=== PATIENT | male | born 1980 | race Caucasian/White ===

== ENCOUNTER 2018-01-12 00:20 | Outpatient (CLI) | payer BC, SELFPAY ==
--- NOTE | 2018-01-12 11:00 | DI.MRI_ITS ---
SYMPTOMS/DIAGNOSIS: PAIN, ? ROTATOR CUFF TEAR MRI OF THE RIGHT SHOULDER: Routine noncontrast examination was performed. There is hyperintense signal seen in the supraspinatus tendon at its insertion onto the greater tuberosity consistent with a partial articular surface tear. The infraspinatus, teres minor and subscapularis tendons are intact. The muscles show normal signal and size. No significant muscular fatty atrophy is present. The biceps tendon has a normal appearance and location. There is hyperintense signal seen in the posterior superior labrum consistent with a tear. The remainder of the labrum is unremarkable. There are mild hypertrophic changes seen at the acromioclavicular joint and in the greater tuberosity. No evidence of an occult fracture or avascular necrosis is seen. The articular cartilage at the glenohumeral joint appears well maintained. No focal fluid collection or soft tissue mass is appreciated. IMPRESSION: 1. Findings most consistent with a small articular surface tear of the supraspinatus tendon. 2. Findings suggestive of a tear of the posterior superior labrum.
== END 2018-01-12 00:40 ==
PROVIDERS: Visit Provider Student in an Organized Health Care Education/Training Program
DX: M25.511 Pain in right shoulder (principal); M75.101 Unspecified rotator cuff tear or rupture of right shoulder, not specified as traumatic
CPT/HCPCS: 73221

== ENCOUNTER 2018-05-09 11:15 | Day surgery (SDC) | payer BC, SELFPAY ==
[2018-05-09] VITALS (7 sets, daily range): BP systolic 109–139; BP diastolic 57–71; PULSE 54–84; RESP 16–21; TEMP 36.2–36.7; O2SAT 97–99
[2018-05-09] MEDS: Lactated Ringers 1,000 ML 80 ML IV (12:10)
[2018-05-09] MEDS: Bupivacaine 0.5% Pres-Free 30 ML VIAL (13:02)
[2018-05-09] MEDS: Bupivacaine LIPOSOME/PF 133 MG/10 ML VIAL IJ (13:02)
--- NOTE | 2018-05-09 13:06 | W.PM.DSUDISC ---
Discharge Plan Disposition Patient Disposition: HOME Condition: Good Discharge Details Reason For Visit: Right Rotator Cuff Repair Attending Provider: Jhon Delarosa Primary Care Provider: Maritza Nazario Home Meds and New Rx's Prescriptions: New ibuprofen 600 mg tablet 600 mg PO TID PRNQty: 90 RF: 3 acetaminophen 500 mg capsule 1,000 mg PO Q8H PRN (Reason: pain) Qty: 90 RF: 0 oxycodone 5 mg tablet 5 mg PO Q4H Qty: 18 RF: 0 Continued fluconazole 150 MG tablet 150 mg PO weekly Qty: 8 RF: 0 Discharge Instructions Stand Alone Forms: Isaura Nielsen w/RCR Referrals: Jhon Delarosa MD [ [facility] STAFF PHYSICIAN] - Equipment/Supplies: Sling Activity:: Stay in Sling Remove Dressings/Wound Care:: 72 hours Shower/Bathe:: 72 hours Diet:: As Tolerated Discharge Orders Discharge Orders: Discharge Order (Routine); Ordered 05/09/18 Ordered By: Jhon Delarosa DS: Diagnosis Discharge Diagnosis (1) Partial tear of rotator cuff: Status: Acute
--- NOTE | 2018-05-09 13:09 | PDOC.DSDIS_ITS ---
Discharge Plan Disposition Patient Disposition: HOME Condition: Good Discharge Details Reason For Visit: Right Rotator Cuff Repair Attending Provider: Jhon Delarosa Primary Care Provider: Maritza Nazario Home Meds and New Rx's Prescriptions: New ibuprofen 600 mg tablet 600 mg PO TID PRNQty: 90 RF: 3 acetaminophen 500 mg capsule 1,000 mg PO Q8H PRN (Reason: pain) Qty: 90 RF: 0 oxycodone 5 mg tablet 5 mg PO Q4H Qty: 18 RF: 0 Continued fluconazole 150 MG tablet 150 mg PO weekly Qty: 8 RF: 0 Discharge Instructions Stand Alone Forms: Isaura Nielsen w/RCR Referrals: Jhon Delarosa MD [ [facility] STAFF PHYSICIAN] - Equipment/Supplies: Sling Activity:: Stay in Sling Remove Dressings/Wound Care:: 72 hours Shower/Bathe:: 72 hours Diet:: As Tolerated Discharge Orders Discharge Orders: Discharge Order (Routine); Ordered 05/09/18 Ordered By: Jhon Delarosa DS: Diagnosis Discharge Diagnosis (1) Partial tear of rotator cuff: Status: Acute
--- NOTE | 2018-05-10 11:46 | ROE_ITS ---
DATE OF SURGERY: May 09, 2018 PREOPERATIVE DIAGNOSIS: Right partial rotator cuff tear. POSTOPERATIVE DIAGNOSIS: Right nearly-complete supraspinatus tear, right glenohumeral chondromalacia, right SLAP tear. SURGEON: Jhon Delarosa M.D. COOK RELIEF: Keo Short FINDINGS: There was some mild biceps tendonitis. There was a type I SLAP tear from approximately 11:00 - 6:00. This was primarily a type I type tear where there was fraying noted on the peripheral edge but the deep tissues were attached. There was also notable chondromalacia seen on the anterior aspect of the glenoid which was associated with some fraying of the anterior labrum and anterior labrum was also intact. There was a large swath of grade III chondromalacia seen over the posterior aspect of the humeral head. The shoulder was taken through range of motion and did not dislocate nor subluxate. The articular side of the supraspinatus tendon showed a tear of approximately 6 millimeters in width. The depth of this tear was well over 8 millimeters and there was significant bony irregularity in this area. This area was marked with a suture and then examined on the bursal side which showed only a few millimeters of fibers left remaining and given the bony regularity seen on the articular side, I released these fibers and performed a complete rotator cuff repair using a medial and lateral row anchor. ANESTHESIA: General with interscalene nerve block. ESTIMATED BLOOD LOSS: Minimal. COMPLICATIONS: None. DISPOSITION: The patient was awakened from anesthesia and taken to PACU in stable condition. INDICATIONS FOR PROCEDURE: Lester is a 37-year-old who has had known shoulder pain. He reports multiple incidents of trauma to the right shoulder. 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 He has dealt with this with a host of conservative treatment options but continues to have pain and limitations. Given these failures, I did offer operative intervention. I reviewed the risks of the procedure to include bleeding, infection, pain, stiffness, weakness, damage to nerves and vessels, damage to muscles and tendons, recurrence, re-tear and blood clot. Despite these risks, he elected to proceed. PROCEDURE DESCRIPTION: Lester was greeted in the preoperative holding area. His identity was confirmed. The correct side was identified and marked. The consent was reviewed with the patient and signed. He was then taken back to the PACU where an interscalene nerve block was administered. After successful administration of the nerve block, he was given a general anesthesia in the operating room. He was then positioned into the beech chair position with any bony prominences well-padded. The head was placed in a neutral position with a foam head of data. Prophylactic antibiotics in the form of Cefazolin were given. The right arm was then prepped with ChloraPrep and draped in a standard fashion. A time-out was performed for safe surgery. The right arm was then placed into a pneumatic arm dubon, [id number]. The joint was insufflated with normal saline. A standard posterior portal was then made. The scope was inserted into the joint without significant difficulty. Immediately had visualization of the inside of the shoulder which showed some inflammatory changes. It also showed chondromalacia over the posterior humeral head which was unexpected. Using a spinal needle, an anterior portal was made within the rotator interval. A 6.5 millimeter cannula was placed in this space. A diagnostic arthroscopy was performed. There were significant inflammatory changes seen in the rotator interval and along the subscapularis and especially along the biceps tendon and the undersurface of the rotator cuff. Using a shaver and electrocautery, I debrided down some of this inflammatory change to fully investigate the area. There was no significant contraction of the rotator interval. The biceps did have very minimal and superficial inflammatory change and no tearing. There was a type I tear seen of the anterior labrum starting involving the entirety of the superior labrum from 10:00 - 2:00 o'clock. There was also a swath of grade III chondromalacia over the anterior aspect of the glenoid which corresponded to some type I fraying of the anterior labrum. The anterior labrum, Bankart area, was not detached. This was debrided down fully from the posterior aspect, superior aspect, down to the anterior aspect of the labrum. I debrided down this fraying, leaving a rim of labrum which was well-attached to the glenoid. There was also this swath of chondromalacia, grade III, which was seen on the posterior aspect of the humeral head, involving 1/3 of the humeral head. There was no engaging lesion and there was no Hill-Sachs deformity. After debridement of the rotator cuff and the biceps tendon and the labrum, I then turned my attention to the rotator cuff. There was a notable defect in the central portion of the supraspinatus insertion over the greater tuberosity. This was easily identifiable. It was debrided down to expose it fully. The width of the lesion was approximately 6 millimeters and the depth was well over 8 millimeters. There was significant bony irregularity in this area which made it very difficult from the articular side to appreciate the entire complexity of the tear. I did samuel this area with a PDS suture. The scope was removed from the shoulder. I then inserted the scope into the subacromial space and placed the cannula lateral to the coracoacromial ligament. A complete bursectomy was performed and the focus was made over the lateral bursa. We were able to identify the PDS suture showing the location of the articular side tear. This was probed and the probe immediately sank into these bursal-sided which, to me, did not demonstrate enough integrity to keep and therefore, using a knife, I cut these fibers off the greater tuberosity. There were maybe 2 millimeters of remaining bursal fibers before I encountered the articular sided tear. This was debrided down. The bony irregularity was also debrided with a shaver and a jean-paul to allow bleeding bone. The edges were debrided in order to get back to healthy tissue. Once this was identified fully, a spinal needle was used to identify a starting point for an anchor. A Mitek Healix anchor was then inserted. Unfortunately, this anchor broke during the insertion. The awl angles seemed to be appropriate and the awl was penetrated to the appropriate depth. However, his bone was extremely dense and broke the cannula. The pieces of the screw were removed. I then used a FASTIN metal anchor to place into the bone. This seemed to work much better. A single horizontal mattress suture was placed. A second horizontal mattress suture was attempted to be placed but, for some reason, frayed as it was going through the anchor and was unable to be kept. This horizontal mattress suture very nicely reapproximated the tendon down to bone. Due to the limited width and real estate in this area, and the density of his bone, I did not try to place another anchor. I did place a free suture running from anterior to posterior which incorporated the tendon to be used in the lateral row. This suture was then tied down firmly, again reapproximating the tendon down to bone and no longer being able to see the defect in the articular side. A lateral anchor was then established. This was using only using the two free limbs of the suture that I placed freely as well as the two limbs of the tied suture. Again, his bone was quite dense. It broke multiple Biocryl Rapide type suture anchors. I was able to have one which embedded deep enough to lock in the sutures and reapproximate the tendon down to bone. This reapproximated the tendon down to bone quite well. There was no exposed bone. There was no exposed articular surface. It was probed to make sure it was intact fully. Each anchor was tested significantly by pulling on the sutures prior to accepting its position. From a posterior portal, I brought a jean-paul into the shoulder. With the lateral viewing portal, using the cutting block technique, an acromioplasty was performed, raising up the anterolateral spur of the shoulder in plane with the posterior slip of the acromion. Any excess fluid from the shoulder was removed. The shoulder portal sites were closed with 3-0 Monocryl. These were followed by Steri-Strips, 4 x 4's, ABD and Medipore tape. At the end of the case, all counts were correct. He was placed in a sling and transferred to PACU in stable condition.
== END 2018-05-09 17:58 | disposition home or self-care (01) ==
PROVIDERS: Visit Provider Student in an Organized Health Care Education/Training Program
PROC: (CPT 29827; principal; 2018-05-09 12:45)
DX: M75.111 Incomplete rotator cuff tear or rupture of right shoulder, not specified as traumatic (principal); M94.211 Chondromalacia, right shoulder; S43.431A Superior glenoid labrum lesion of right shoulder, initial encounter; M75.21 Bicipital tendinitis, right shoulder; X58.XXXS Exposure to other specified factors, sequela
CPT/HCPCS: 29827; 29826; 29823; 64415; 76942; C1713; J0690; J1100; J2250; J2405; L3670

== ENCOUNTER 2019-06-11 09:55 | Outpatient (CLI) | payer BC, SELFPAY ==
--- NOTE | 2019-06-11 09:30 | DI.US_ITS ---
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 COMPARISON: No exams were available for comparison FINDINGS: The testicles are normal in size and echogenicity. There is no evidence of torsion or mass. An 8 m illimeter cyst is seen in the head of the right epididymis. No hydrocele or varicocele is seen. A n ormal appearing lymph node is noted in the right groin region. No hernia or fluid collection is seen . IMPRESSION: Small cyst in the head of the right epididymis. No abnormality seen involving the testicles. DATA REPOSITORY:
== END 2019-06-11 10:15 ==
DX: R10.31 Right lower quadrant pain (principal); N50.82 Scrotal pain; N50.3 Cyst of epididymis
CPT/HCPCS: 76870

== ENCOUNTER 2019-07-02 01:59 | Outpatient (CLI) | payer BC, SELFPAY ==
--- NOTE | 2019-07-02 07:45 | DI.US_ITS ---
EXAM: US SOFT TISS BUTTOCK/PERINEUM CLINICAL HISTORY: growing mass L buttock, soft tissue mass, M79.89 TECHNIQUE: Ultrasound performed using standard protocol. COMPARISON: US SCROTUM from 06/11/2019 FINDINGS: Soft tissue ultrasound was performed to evaluate a palpable abnormality of the inferior medial left b uttock region. There is a septated solid echogenicity mass which is fairly homogeneous and appears i soechoic with surrounding fat. Mild visible vascular flow intra lesionaly on Doppler evaluation. The findings as described are suggestive of a lipoma, please note that other etiologies including lip osarcoma or other neoplastic processes are not excluded on the basis of this examination. For a lesi on of this size, additional evaluation with MRI including post contrast imaging should be considered. DATA REPOSITORY:
== END 2019-07-02 02:19 ==
PROVIDERS: Visit Provider Surgery
DX: M79.89 Other specified soft tissue disorders (principal); D17.79 Benign lipomatous neoplasm of other sites
CPT/HCPCS: 76857

== ENCOUNTER 2019-08-03 03:08 | Outpatient (CLI) | payer BC, SELFPAY ==
--- NOTE | 2019-08-03 09:20 | DI.MRI_ITS ---
EXAM: MR PELVIS WO/W CLINICAL HISTORY: scan all of left buttock/upper left leg,mass soft tissue pelvis, r19.00 TECHNIQUE: Multiplanar multisequence MRI of Pelvis was performed. CONTRAST MATERIAL: IV Contrast: mL of Dotarem contrast administered. COMPARISON: US SOFT TISS BUTTOCK/PERINEUM from 07/02/2019 FINDINGS: Bones: There is no fracture or contusion pattern. No significant joint effusion or labral injury is present. No bone marrow edema is seen. The SI joints and symphysis pubis are well maintained. Musculotendinous structures: Musculotendinous structures demonstrate no abnormality. Intrapelvic structures demonstrate no significant abnormality. Soft tissues: In the subcutaneous fat of the left buttock inferiorly, there is a circumscribed, mildl y lobulated fatty signal lesion measuring 6.1 x 3.8 by 5 cm. No solid components or cystic component s are seen. There is no evidence of suspicious enhancement. The findings are consistent with a simpl e lipoma. No additional masses are identified. IMPRESSION: Findings are consistent with a 6.1 centimeter simple lipoma in the subcutaneous fat of the inferior l eft buttock. DATA REPOSITORY:
[2019-08-03] MEDS: Gadoterate meglumine 20 ML VIAL 15 ML IVP (09:31)
== END 2019-08-03 03:28 ==
PROVIDERS: Visit Provider Surgery
DX: R22.42 Localized swelling, mass and lump, left lower limb (principal); D17.39 Benign lipomatous neoplasm of skin and subcutaneous tissue of other sites
CPT/HCPCS: 72197

== ENCOUNTER 2020-04-19 10:48 | Emergency (ER) | payer BC, SELFPAY ==
[2020-04-19 10:52] VITALS: BP 135/77; PULSE 65; RESP 16; TEMP 36.7; O2SAT 98
[2020-04-19 11:06] LABS: Bilirubin Negative (Negative); Blood Trace-intact (Negative); Clarity Sl Cloudy (Clear); Glucose Negative (Negative); Ketones Negative (Negative); Leukocyte Esterase Negative (Negative); Nitrite Negative (Negative); Specific Gravity >= 1.030 (1.005-1.025); Urobilinogen 0.2 EU/dL (Up TO 0.2)
[2020-04-19 11:14] LABS: Bacteria Rare HPF (Negative); C & S Indicated? No; Casts Negative LPF (Negative); Crystals Negative HPF (Negative); Epithelial Cells Few HPF (Negative); Mucus Moderate (Negative); WBC 0-2 HPF (0-5)
--- NOTE | 2020-04-19 11:42 | ED.GENADUL_ITS ---
Discharge Plan Disposition Patient Disposition: HOME Condition: Stable Discharge Details Clinical Impression: Back pain, Hematuria Primary Care Provider: Maritza Nazario ED Provider: Craig Hancock Home Meds and New Rx's Prescriptions: Continued ibuprofen 600 mg tablet 600 mg PO TID PRNQty: 90 RF: 3 acetaminophen 500 mg capsule 1,000 mg PO Q8H PRN (Reason: pain) Qty: 90 RF: 0 Discharge Instructions Instructions: Hematuria (ED), Back Pain (ED) Additional Instructions: Your urinalysis reveals some microscopic blood in your urine, and this should be followed by your primary care provider as we discussed. CT imaging does not reveal any obvious signs of stone. This is likely musculoskeletal in nature. [id number] Tylenol and/or Motrin as directed for discomfort. Gentle stretching as tolerated. Cool and/or warm compresses every 2 hours for 20 minutes. Please watch for new or worsening symptoms and return to the ER for any concerns. I do recommend keeping your scheduled appointment in the next 2 weeks with your primary care provider for your annual physical. Medical Decision Making 39-year-old gentleman, denies any significant past history, reports moving a refrigerator couple of hours ago. Noticed a small amount of right-sided lower back pain but that worsened significantly over a half an hour or so. It caused him to become diaphoretic and lie down. Took Motrin and feels significantly better. He presents today wanting to be evaluated, is concerned about possible renal stone. Denies any flank discomfort, fever, abdominal pain, nausea, vomiting, radiation of pain into his groin or testicles, dysuria or hematuria. We discussed options. He does not want anything for pain control at the moment. He is open to obtaining a urinalysis to further evaluate for potential hematuria but does not want blood work. He appears well, nontoxic, no acute d istress. I believe this to be a reasonable plan. Pain is made worse with stretching or rotation of the torso. The urinalysis does reveal trace intact blood, 5-10 red blood cells. Otherwise unremarkable. Discussed findings with patient. He is agreeable to obtaining a CT of the abdomen and pelvis for renal colic, noncontrast but declines any blood work. Clinically this very well could be musculoskeletal but certainly cannot rule out the possibility of a renal stone. Likely CBC, CMP, will not change his outcome. If patient has a grossly abnormal CT then I will request once again to obtain laboratory values. CT imaging of the abdomen and pelvis, renal colic protocol read by radiology. No discrete evidence to suggest obstructive urinary stones. Bilateral faint medullary hyperdensities may suggest mild urinary nephrocalcinosis. Discussed CT findings with patient. He is relieved and has no additional questions or concerns. He will use [id number] Tylenol and/or Motrin as d irected for his discomfort. We discussed the hematuria findings and the importance of having this evaluated through his primary care provider. Coincidently, he is scheduled to be seen for a annual physical in the next couple of weeks and will follow up then. He was encouraged to return to the ER for new or worsening symptoms. Patient is comfortable discharge at this time. Medical Records Medical records reviewed: Yes I reviewed the patient's medical records. Lab Data Lab results reviewed: Yes I reviewed the patient's lab results. Labs: Laboratory Tests Range/Units 04/19/20 10:53 Urine Color (Yellow) Yellow Urine Clarity (Clear) Sl cloudy Urine pH (5-8) 6.0 Ur Specific [place] (1.005-1.025) >= 1.030 H Urine Protein (Negative) mg/dL Negative Urine Ketones (Negative) mg/dL Negative Urine Blood (Negative) Trace-intact H Urine Nitrite (Negative) Negative Urine Bilirubin (Negative) Negative Urine Urobilinogen (Up TO 0.2) EU/dL 0.2 Ur Leukocyte Esterase (Negative) Negative Urine RBC (0-2) HPF 5-10 H Urine WBC (0-5) HPF 0-2 Ur Epithelial Cells (Negative) HPF Few Urine Crystals (Negative) HPF Negative Urine Bacteria (Negative) HPF Rare Urine Casts (Negative) LPF Negative Urine Mucus (Negative) Moderate Ur Culture Indicated? No Urine Glucose (Negative) mg/dL Negative HPI General Mode of arrival: ambulatory . Date/Time Provider Initiated Documentation: 04/19/20 11:00 . Limitations to Documentation: no limitations . Information obtained by: patient . HPI Narrative: This is a 39-year-old gentleman, denies significant past medical history. He states that approximately 2 hours ago he was attempting to move a refrigerator. He noticed a small amount discomfort to his right back while he was moving a fridge but did not feel as though he sustained a true injury during the movement. Subsequently over the next 30 minutes the pain went from mild to much more moderate and severe, causing him to become diaphoretic and lie down. He took ecpr-nlo-djamoqt Advil and states that his pain is now much more tolerable. He denies any other trauma or recent illness. Denies fever, abdominal pain, nausea, vomiting, neck pain, dysuria, hematuria, pain in his testicles. He denies history of kidney stones but questions if that could be was happening today. Related Data Home Medications Medication Instructions Recorded Confirmed acetaminophen 1,000 mg PO Q8H PRN #90 cap 05/09/18 04/19/20 ibuprofen 600 mg PO TID PRN #90 tab 05/09/18 04/19/20 Previous Rx's Medication Instructions Recorded acetaminophen 1,000 mg PO Q8H PRN #90 cap 05/09/18 ibuprofen 600 mg PO TID PRN #90 tab 05/09/18 Allergies Allergy/AdvReac Type Severity Reaction Status Date / Time Sulfa (Sulfonamide Allergy Unknown as child Verified 04/19/20 10:59 Antibiotics) General Stated Complaint: Nk/Back Pain SISSY: 3 Review of Systems Constitutional Constitutional: Denies fatigue, Denies fever(s) and Denies weakness Cardiovascular Cardiovascular: Denies chest pain and Denies dyspnea Respiratory Respiratory: Denies cough and Denies dyspnea Gastrointestinal Gastrointestinal: Denies abdominal pain, Denies nausea and Denies vomiting Genitourinary Genitourinary: Denies hematuria and Denies dysuria Musculoskeletal Musculoskeletal: Reports back pain, Denies numbness and Denies tingling Integumentary/Breasts Skin/Breast: Denies rash Neurologic Neurologic: Denies numbness, Denies tingling and Denies weakness Endocrine Endocrine: Denies fatigue [facility] Medical History 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 Maternal Grandfather Throat cancer Paternal Grandfather No problems noted. Maternal Grandmother Diabetes Heart disease COPD (chronic obstructive pulmonary disease) Paternal Grandmother Stroke Cancer Son No problems noted. Daughter No problems noted. Daughter No problems noted. Son No problems noted. Social History Smoking/Tobacco Use Status: Never Second Hand Exposure: Yes Smoking risk assessment performed?: Yes Alcohol Intake: never Drug use: Rarely Substance use type: marijuana Caregiver/Support person: No Household members: spouse and children Housing: house Communication Needs: None Do you need help understanding health information?: Rarely Pets and animals: Yes Pets and animals: dog(s) Sexually active: Yes Do you think of yourself as: straight/heterosexual Current gender identity: male What is your relationship status?: How often do you talk on the phone with friends or family?: decline to answer How often do you get together with friends or relatives?: twice per week How often do you attend confucianist or baptist services?: decline to answer Do you belong to any clubs or organized social groups?: no Panel score (0-1 are the most socially isolated patients): 1 What type of physical activity do you participate in: other Details: cardio and small weights Duration: decline to answer Frequency: decline to answer Savita/Mu-Ism: No preference Special savita needs: No Seatbelt use: sometimes Helmet use: Yes Helmet use: always 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 Do you feel safe at home: Yes Do you feel safe in your relationship?: Yes Exam Const General: cooperative, healthy appearing, comfortable and no acute distress Orientation: alert and awake [facility] Head: normal to inspection, normocephalic and atraumatic Eyes General: appearance normal, both eyes and all related structures Conjunctivae: conjunctivae normal Sclera: sclerae normal Neck Neck: normal visual inspection, full ROM, trachea midline and supple Resp Effort & Inspection: normal respiratory effort and able to speak in complete sentences Auscultation: clear to auscultation bilaterally Cardio Rate: regular rate Rhythm: regular rhythm GI Inspection: normal to inspection Palpation: soft, not firm, no guarding, no pulsatile masses and nontender Auscultation: normal bowel sounds Back/Spine/Pelvis Back: no CVA tenderness and back tenderness (Diffuse right sided lower thoracic, and lumbar discomfort) Skin General skin exam: no rashes or lesions noted Neuro General: patient alert, patient awake, moves all extremities and no focal motor deficits Cognition: normal cognition Speech: speech normal Gait: normal gait Motor: muscle tone normal throughout Sensory Exam: no sensory deficits noted Extrem General: normal to inspection, full ROM, capillary refill normal, no pedal edema and no calf tenderness Psych Appearance: grossly normal Mental Status: mental status grossly normal Course Vital Signs Vital signs: Vital Signs Temperature 36.7 C 04/19/20 10:52 Pulse 65 04/19/20 10:52 Respiratory Rate 16 04/19/20 10:52 Blood Pressure 135/77 04/19/20 10:52 Pulse Oximetry 98 04/19/20 10:52 Temperature 36.7 C 04/19/20 10:52 Temperature Source Temporal Artery Scan 04/19/20 10:52 Pulse 65 04/19/20 10:52 Respiratory Rate 16 04/19/20 10:52 Respiratory Effort Non-Labored 04/19/20 10:57 Blood Pressure 135/77 04/19/20 10:52 Blood Pressure Position Sitting 04/19/20 10:52 Pulse Oximetry 98 04/19/20 10:52 Oxygen Delivery Method Room Air 04/19/20 10:52 Oxygen Flow Rate 0 04/19/20 10:52 Pain Level 5 04/19/20 11:01 Lab/Test Results Lab/Test Results: Laboratory Tests Range/Units 04/19/20 10:53 Urine Color (Yellow) Yellow Urine Clarity (Clear) Sl cloudy Urine pH (5-8) 6.0 Ur Specific [place] (1.005-1.025) >= 1.030 H Urine Protein (Negative) mg/dL Negative Urine Ketones (Negative) mg/dL Negative Urine Blood (Negative) Trace-intact H Urine Nitrite (Negative) Negative Urine Bilirubin (Negative) Negative Urine Urobilinogen (Up TO 0.2) EU/dL 0.2 Ur Leukocyte Esterase (Negative) Negative Urine RBC (0-2) HPF 5-10 H Urine WBC (0-5) HPF 0-2 Ur Epithelial Cells (Negative) HPF Few Urine Crystals (Negative) HPF Negative Urine Bacteria (Negative) HPF Rare Urine Casts (Negative) LPF Negative Urine Mucus (Negative) Moderate Ur Culture Indicated? No Urine Glucose (Negative) mg/dL Negative
--- NOTE | 2020-04-19 11:45 | DI.CT_ITS ---
EXAM: CT RENAL COLIC WO CLINICAL HISTORY: Right sided back pain, hematuria. TECHNIQUE: Imaging Protocol: Axial computed tomography images with coronal and sagittal reformatted images were created and reviewed. CONTRAST MATERIAL: Noncontrast COMPARISON: No exams were available for comparison FINDINGS: ABDOMEN: Lung Bases: Normal where visualized. Liver: Normal density. No measurable mass. Gallbladder and biliary tract: No radiodense calculus or dilation. Pancreas: Normal density, no abnormal calcifications or inflammatory process. Spleen: Normal. Kidneys: Normal size, contour and axis. Faint hyperdensity in the medullary regions kidneys could in dicate mild medullary nephrocalcinosis. No discrete stones or obstructive uropathy. No masses seen. Adrenal glands: No masses seen. Abdominal Aorta: Abdominal portion non-dilated. PELVIS: Bladder: Symmetric distention, no gross wall thickening. Bowel: Limited evaluation without IV or oral contrast. No obstruction or bowel wall thickening. Soft tissues: Partially visualized left buttock lipoma. Peritoneal cavity: No ascites, collection or mesenteric inflammatory response. Bones: Within normal limits. IMPRESSION: Mild medullary nephrocalcinosis. No evidence of discrete focal calcification or hydronephrosis.. RADIATION DOSE DELIVERED: 578.97mGy.cm Total DLP DATA REPOSITORY: All CT scans at this facility are submitted to the National Radiology Data Registry (NRDR) Dose Index Registry (DIR) with the [employer] (ACR). RADIATION OPTIMIZATION: All CT scans at this facility use at least one of these dose optimization te chniques: automated exposure control; mA and/or kV adjustment per patient size (includes targeted exa ms where dose is matched to clinical indication); or iterative reconstruction.
--- NOTE | 2020-04-19 12:04 | DI.VRAD_ITS ---
PROCEDURE INFORMATION: Exam: CT Abdomen And Pelvis Without Contrast Exam date and time: 04/19/2020 11:22 AM Age: 39 years old Clinical indication: Other: Right sided back pain, hematuria TECHNIQUE: Imaging protocol: Computed tomography of the abdomen and pelvis without contrast. Radiation optimization: All CT scans at this facility use at least one of these dose optimization techniques: automated exposure control; mA and/or kV adjustment per patient size (includes targeted exams where dose is matched to clinical indication); or iterative reconstruction. COMPARISON: MR PELVIS WO/W 08/03/2019 8:24 AM FINDINGS: Liver: Unremarkable. No mass. Gallbladder and bile ducts: Unremarkable. No calcified stones. No ductal dilation. Pancreas: Unremarkable. No ductal dilation. Spleen: Unremarkable. No splenomegaly. Adrenal glands: Normal. No mass. Kidneys and ureters: Bilateral faint medullary hyperdensities may indicate mild medullary nephrocalcinosis. There is no evidence of hydronephrosis. No discrete urinary stones. Stomach and bowel: Limited evaluation with the lack of enteric and intravenous contrast. No obstruction. No mucosal thickening. Appendix: No evidence of appendicitis. Intraperitoneal space: Unremarkable. No free air. No significant fluid collection. Vasculature: There are numerous benign phleboliths in the pelvis. No abdominal aortic aneurysm. Lymph nodes: Unremarkable. No enlarged lymph nodes. Urinary bladder: Unremarkable as visualized. Reproductive: Unremarkable as visualized. Bones/joints: Unremarkable. No acute fracture. Soft tissues: Partially visualized left buttock lipoma previously characterized with MRI dated 08/03/2019. IMPRESSION: 1. No discrete evidence to suggest obstructive urinary stones. 2. Bilateral faint medullary hyperdensities may suggest mild medullary nephrocalcinosis. 3. Evaluation of the hollow viscera is limited due to lack of enteric and intravenous contrast. 4. Partially visualized left buttock hematoma previously characterized MRI dated 08/03/2019. Dictated and Authenticated by: Kaleb Mosqueda MD. Ordering:BRICE Srinivasan MD
[2020-04-19 12:13] VITALS: BP 123/60; PULSE 60; RESP 16; TEMP 37; O2SAT 98
== END 2020-04-19 12:30 | disposition home or self-care (01) ==
PROVIDERS: Emergency Provider Physician Assistant
DX: M54.5 Low back pain (principal); R31.9 Hematuria, unspecified; X50.0XXA Overexertion from strenuous movement or load, initial encounter
CPT/HCPCS: 99284; 74176; 81003; 81015

== ENCOUNTER 2021-09-24 16:23 | Emergency (ER) | payer SELFPAY ==
[2021-09-24 16:46] VITALS: BP 124/69; PULSE 54; RESP 16; TEMP 36.8; O2SAT 100
--- NOTE | 2021-09-24 17:00 | DI.RAD_ITS ---
Exam(s) XR HIP RT COMPLETE AP PELVIS EXAM: XR HIP RT COMPLETE AP PELVIS CLINICAL HISTORY: R SI/Hip pain TECHNIQUE: COMPARISON: No exams were available for comparison FINDINGS: Two views were obtained. The cartilaginous joint spaces of the hips appear well maintained. No bony abnormality identified involving the hips or pelvis. The SI joints appear normal. IMPRESSION: Normal appearance of hips and SI joints. RADIATION DOSE DELIVERED: Total DLP
--- NOTE | 2021-09-24 17:11 | ED.GENADUL_ITS ---
Discharge Plan Disposition Patient Disposition: HOME Condition: Stable Discharge Details Clinical Impression: Sciatica of right side Primary Care Provider: Maritza Nazario ED Provider: Jah Bush Home Meds and New Rx's Prescriptions: New methocarbamol 500 mg tablet 500 - 1,000 mg PO Q6H PRN (Reason: Back pain or spasm) Qty: 14 0RF prednisone 50 mg tablet 50 mg PO DAILY 5 Days Qty: 5 0RF Continued ibuprofen 600 mg tablet 600 mg PO TID PRNQty: 90 3RF acetaminophen 500 mg capsule 1,000 mg PO Q8H PRN (Reason: pain) Qty: 90 0RF Discharge Instructions Instructions: Sciatica (ED) Additional Instructions: Remove Lidoderm patch in 12 hours. May use further qmef-huq-wrypewb patches if needed. Continue ibuprofen and Tylenol. May use the provided Robaxin 1000 mg at bedtime tonight. Prednisone prescription will start tomorrow. Follow-up with physical therapy if not improving in 2 days time. Return to the emergency department for any acute concerns Stand Alone Forms: Physical Therapy Referral Medical Decision Making Area 40-year-old male presents from home. He was on his knees changing a tire, when he swept his right leg out in abduction and and flexion of the hip. He felt immediate stabbing pain on the right hip radiating to the thigh. Since that time he had pain particularly with hip flexion. He has not had any change to motor function and no change to urinary habits. On exam he has normal motor and sensation throughout the right lower extremity. He is tender at the right sciatic notch. Differential diagnosis includes sciatica, SI joint dysfunction, iliopsoas irritation. Must exclude underlying bony cyst or malalignment. Patient referred for x-ray which is unremarkable. Please see the formal report. HPI General Mode of arrival: ambulatory . Date/Time Provider Initiated Documentation: 09/24/21 16:24 . Limitations to Documentation: no limitations . Information obtained by: patient . History of Present Illness 40 year old M presents to the emergency department with the chief complaint of Right hip pain since 09/23, described as moderate, Quality is described as dull, and is localized to the pelvis, right and lower extremity. Patient extremity. Patient started experiencing this hour(s) and it has been constant. Rest improves symptom(s), Movement worsens symptoms . Patient notes denies rash and weakness. Patient did receive the following treatments prior to arrival, NSAID Related Data Home Medications Medication Instructions Recorded Confirmed acetaminophen 500 mg capsule 1,000 mg PO Q8H PRN pain #90 caps 05/09/18 09/24/21 ibuprofen 600 mg tablet 600 mg PO TID PRN #90 tabs 05/09/18 09/24/21 methocarbamol 500 mg tablet 500 - 1,000 mg PO Q6H PRN Back 09/24/21 pain or spasm #14 tabs prednisone 50 mg tablet 50 mg PO DAILY 5 days #5 tabs 09/24/21 Previous Rx's Medication Instructions Recorded acetaminophen 500 mg capsule 1,000 mg PO Q8H PRN pain #90 caps 05/09/18 ibuprofen 600 mg tablet 600 mg PO TID PRN #90 tabs 05/09/18 methocarbamol 500 mg tablet 500 - 1,000 mg PO Q6H PRN Back 09/24/21 pain or spasm #14 tabs prednisone 50 mg tablet 50 mg PO DAILY 5 days #5 tabs 09/24/21 Allergies Allergy/AdvReac Type Severity Reaction Status Date / Time Sulfa (Sulfonamide Allergy Unknown as child Verified 09/24/21 16:51 Antibiotics) General Stated Complaint: Orthopedic SISSY: 4 Review of Systems Narrative: No rash, no weakness, no change to bowel or bladder habits. No saddle anesthesia. 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 Maternal Grandfather Throat cancer Paternal Grandfather No problems noted. Maternal Grandmother Diabetes Heart disease COPD (chronic obstructive pulmonary disease) Paternal Grandmother Stroke Cancer Son No problems noted. Daughter No problems noted. Daughter No problems noted. Son No problems noted. Social History Smoking/Tobacco Use Status: Never Second Hand Exposure: Yes Smoking risk assessment performed?: Yes Alcohol Intake: never Drug use: Rarely Substance use type: marijuana Counseling given: No Counseling provided: none Caregiver/Support person: No Household members: spouse and children Housing: house Communication Needs: None Do you need help understanding health information?: Rarely Pets and animals: Yes Pets and animals: dog(s) Sexually active: Yes Do you think of yourself as: straight/heterosexual Current gender identity: male What is your relationship status?: How often do you talk on the phone with friends or family?: three or more times per week How often do you get together with friends or relatives?: twice per week How often do you attend amish or mandaen services?: 1-3 times per year Do you belong to any clubs or organized social groups?: no Panel score (0-1 are the most socially isolated patients): 2 What type of physical activity do you participate in: other Details: cardio and small weights Duration: 30-45 minutes/day Frequency: 3-4 times per week Savita/Restorationism: Jainism Special savita needs: No Seatbelt use: sometimes Helmet use: Yes Helmet use: always 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 Pleasant, well groomed, interactive. HEAD: Normocephalic, atraumatic ENT: Mucous membranes moist, oropharynx unremarkable, External ear exam unremarkable EYES: PERRL, EOMI NECK: Full ROM, no RENY, no menigismus CHEST/RESP: No respiratory distress EXT: Full ROM, tender with palpation of right sciatic notch. Motor 5 out of 5. Sensation intact throughout. 1+ patellar reflex bilaterally Neuro: Grossly normal neurologic exam, conversant, interactive. Psych: Speech fluent, thoughts congruent, affect normal Course Vital Signs Vital signs: Vital Signs Temperature 36.8 C 09/24/21 16:46 Pulse 54 L 09/24/21 16:46 Respiratory Rate 16 09/24/21 16:46 Blood Pressure 124/69 09/24/21 16:46 Pulse Oximetry 100 09/24/21 16:46 Temperature 36.8 C 09/24/21 16:46 Pulse 54 L 09/24/21 16:46 Respiratory Rate 16 09/24/21 16:46 Respiratory Effort 09/24/21 16:51 Blood Pressure 124/69 09/24/21 16:46 Pulse Oximetry 100 09/24/21 16:46 Pain Level 9 09/24/21 16:51
--- NOTE | 2021-09-24 18:10 | DI.VRAD_ITS ---
PROCEDURE INFORMATION: Exam: XR Right Hip Exam date and time: 09/24/2021 17:41 Age: 40 years old Clinical indication: Other: R si/hip pain TECHNIQUE: Imaging protocol: Radiologic exam of the Right hip. Views: 2 or 3 views hip with pelvis when performed. COMPARISON: MR PELVIS WO/W 08/03/2019 08:24 FINDINGS: Bones/joints: No acute fracture or subluxation. No significant degenerative changes are seen. SI joints grossly intact on frontal imaging. Soft tissues: Unremarkable. IMPRESSION: No acute bony pathology. Dictated and Authenticated by: Teetee Hook MD. Ordering:SUN Tyson MD
[2021-09-24] MEDS: predniSONE 20 MG TAB 60 MG PO (18:18)
[2021-09-24] MEDS: Methocarbamol 500 MG TAB 1000 MG PO (18:19)
[2021-09-24] MEDS: Lidocaine 5% Patch 1 PATCH TP (18:19)
== END 2021-09-24 18:25 | disposition home or self-care (01) ==
PROVIDERS: Emergency Provider Emergency Medicine
DX: M54.31 Sciatica, right side (principal); X50.9XXA Other and unspecified overexertion or strenuous movements or postures, initial encounter
CPT/HCPCS: 99284; 73502; 99283; J7512

== ENCOUNTER 2022-08-28 22:28 | Emergency (ER) | payer BC, SELFPAY ==
[2022-08-28 22:35] VITALS: BP 136/81; PULSE 105; RESP 20; TEMP 37; O2SAT 97
--- NOTE | 2022-08-28 22:46 | W.ED.GENAD ---
Discharge Plan Disposition Patient Disposition: Home Condition: Good Discharge Details Clinical Impression: Contusion of testicle Primary Care Provider: Clayton Corado ED Provider: Noel Frank Home Meds and New Rx's Prescriptions: No Action ibuprofen 600 mg tablet 600 mg PO TID PRNQty: 90 3RF acetaminophen 500 mg capsule 1,000 mg PO Q8H PRN (Reason: pain) Qty: 90 0RF Discharge Instructions Additional Instructions: At this time you do have received a mild contusion of your testicles. There is no hematoma, evidence of testicular torsion, bruise or other abnormality. Please take Tylenol and Motrin as needed for pain. Please monitor your symptoms closely. If you notice any change in symptoms please return immediately for reassessment. If you notice any blood in your urine or your ejaculatnt please return for reassessment. If you notice any worsening of your symptoms, or any new symptoms such as vomiting, diarrhea, fever, chills, shortness of breath, chest pain, numbness, weakness, or fainting , please return immediately to the emergency department for reevaluation. Please follow up with your primary care provider as soon as possible for reassessment and reevaluation. As always, it was a pleasure participating in your medical care today. Referrals: Clayton Corado, ADOPTION MANAGER [Primary Care Provider] - Medical Decision Making 41-year-old male presents today after receiving a softball to his left testicle. Patient states that about 4 to 5 hours ago he was playing softball when the ball bounced and hit him in the groin. He had some immediate pain at that time. However since then the pain is completely resolved. He denies any swelling. He denies any pain or tenderness with movement. He denies any blood in his urine. He has not yet ejaculated. He denies any complaints whatsoever. He does state that his did recommend that he come to get checked for further assessment. No other complaints at this time. Exam demonstrates a notably reassuring exam. No swelling, testicular tenderness, edema, or bruising. Normal cremasteric reflex bilaterally. No evidence of hematoma. No signs of trauma otherwise. No indication for imaging, ultrasound, or x-ray at this time. Thankfully the patient demonstrates a notably normal clinical exam. Recommend Tylenol or Motrin or ice if swelling or pain does occur. Discussed red flags for which to return. I have extensively reviewed the treatment plan and discharge instructions with the patient. I have addressed all patient concerns at this time. The patient was made aware of what symptoms to monitor for that would warrant a return to the emergency department. Discussed the plan with the patient, they demonstrate verbal understanding and agreement with our assessment and plan at this time. The documentation in this chart was dictated using [employer] dictation software. Please excuse any dictation errors. HPI General Date/Time Provider Initiated Documentation: 08/28/22 22:46. HPI Narrative: 41-year-old male presents today after receiving a softball to his left testicle. Patient states that about 4 to 5 hours ago he was playing softball when the ball bounced and hit him in the groin. He had some immediate pain at that time. However since then the pain is completely resolved. He denies any swelling. He denies any pain or tenderness with movement. He denies any blood in his urine. He has not yet ejaculated. He denies any complaints whatsoever. He does state that his did recommend that he come to get checked for further assessment. No other complaints at this time. Related Data Home Medications Medication Instructions Recorded Confirmed acetaminophen 500 mg capsule 1,000 mg PO Q8H PRN pain #90 caps 05/09/18 07/07/22 ibuprofen 600 mg tablet 600 mg PO TID PRN #90 tabs 05/09/18 07/07/22 Previous Rx's Medication Instructions Recorded acetaminophen 500 mg capsule 1,000 mg PO Q8H PRN pain #90 caps 05/09/18 ibuprofen 600 mg tablet 600 mg PO TID PRN #90 tabs 05/09/18 Allergies Allergy/AdvReac Type Severity Reaction Status Date / Time Sulfa (Sulfonamide Allergy Unknown as child Verified 07/07/22 08:04 Antibiotics) General Stated Complaint: Trauma SISSY: 4 Review of Systems All systems reviewed & are unremarkable except as noted in HPI and below PFSH All Active Problems 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) Back pain without radiation (Chronic 02/26/16) 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) Lipoma of neck (Acute) Scrotal disorder (Acute) 06/2019 ache in scrotum and right groin intermittent 06/11/19 - Small right cyst head of right epididymis per [place] Mass of soft tissue of pelvis (Acute) Soft tissue mass (Acute) 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 Maternal Grandfather Throat cancer Paternal Grandfather No problems noted. Maternal Grandmother Diabetes Heart disease COPD (chronic obstructive pulmonary disease) Paternal Grandmother Stroke Cancer Son No problems noted. Daughter No problems noted. Daughter No problems noted. Son No problems noted. Social History Smoking/Tobacco Use Status: Never Second Hand Exposure: Yes Smoking risk assessment performed?: Yes Alcohol Intake: never Drug use: Rarely Substance use type: marijuana Counseling given: No Counseling provided: none Caregiver/Support person: No Household members: spouse and children Housing: house Communication Needs: None Do you need help understanding health information?: Rarely Pets and animals: Yes Pets and animals: dog(s) Sexually active: Yes Do you think of yourself as: straight/heterosexual Current gender identity: male What is your relationship status?: How often do you talk on the phone with friends or family?: three or more times per week How often do you get together with friends or relatives?: twice per week How often do you attend tenriism or yarsanism services?: 1-3 times per year Do you belong to any clubs or organized social groups?: no Panel score (0-1 are the most socially isolated patients): 2 What type of physical activity do you participate in: other Details: cardio and small weights Duration: 30-45 minutes/day Frequency: 3-4 times per week Savita/Pentecostalism: Samaritan Special savita needs: No Seatbelt use: sometimes Helmet use: Yes Helmet use: always Drive intox or ride w/intox backhaul driver: No Do you feel safe at home: Yes Do you feel safe in your relationship?: Yes Exam Narrative Exam Narrative: 1.Const: Well-nourished, Well-developed, appearing stated age 2.Eyes: PERRL, no conjunctival injection, and symmetrical lids. 3.ENT: Atraumatic external nose and ears. Moist MM. Neck: Symmetric, trachea midline, No thyromegaly. 4.CVS: +S1/S2, No murmurs or gallops. Peripheral pulses 2+ and equal in all extremities. Brisk capillary refill in all extremities. 5.RESP: Unlabored respiratory effort. Clear to auscultation bilaterally. No wheezes rales or rhonchi 6.GI: Soft, Nontender/Nondistended, No hepatosplenomegaly. No guarding or rebound. Scrotal exam demonstrates bilaterally descended nontender testicles. Normal cremasteric reflex bilaterally. No hematoma. No epididymal pain. No tenderness over the penis. No groin pain or tenderness. No signs of trauma 7.MSK: Normocephalic/Atraumatic, Extremities w/o deformity or ttp No cyanosis or clubbing, Normal movement of all extremities 8.Skin: Warm, Dry. No rashes or lesions. 9.Neuro: event coordinator marketing and sales II-XII grossly intact. Sensation grossly intact, no focal neurologic deficits. 10.Psych: (AAO) x3. Appropriate mood and affect Course Vital Signs Vital signs: Vital Signs Temperature 37.0 C 08/28/22 22:35 Pulse 105 H 08/28/22 22:35 Respiratory Rate 20 08/28/22 22:35 Blood Pressure 136/81 08/28/22 22:35 Pulse Oximetry 97 08/28/22 22:35 Temperature 37.0 C 08/28/22 22:35 Temperature Source Oral 08/28/22 22:35 Pulse 105 H 08/28/22 22:35 Respiratory Rate 20 08/28/22 22:35 Blood Pressure 136/81 08/28/22 22:35 Pulse Oximetry 97 08/28/22 22:35 Oxygen Delivery Method Room Air 08/28/22 22:35 Oxygen Flow Rate 0 05/20/23 22:35 Pain Level 0 08/28/22 22:35
== END 2022-08-28 23:02 | disposition home or self-care (01) ==
PROVIDERS: Emergency Provider Student in an Organized Health Care Education/Training Program; PCP Nurse Practitioner Family
DX: S30.22XA Contusion of scrotum and testes, initial encounter; W21.03XA Struck by baseball, initial encounter
CPT/HCPCS: 99282; 99283

== ENCOUNTER 2023-01-29 16:39 | Emergency (ER) | payer SELFPAY ==
[2023-01-29 16:42] VITALS: BP 142/86; PULSE 90; RESP 20; TEMP 37; O2SAT 97
[2023-01-29] MEDS: Acetaminophen 500 MG TAB 1000 MG PO (17:15)
[2023-01-29] MEDS: Lidocaine 5% Patch 1 PATCH TP (17:15)
[2023-01-29] MEDS: Cyclobenzaprine 10 MG TAB PO (17:15)
[2023-01-29] MEDS: Ibuprofen 600 MG TAB PO (17:15)
--- NOTE | 2023-01-29 18:21 | ED.GENADUL_ITS ---
Discharge Plan Disposition Patient Disposition: Home Condition: Stable Discharge Details Clinical Impression: Back strain Primary Care Provider: Clayton Corado ED Provider: Christina Squires Home Meds and New Rx's Prescriptions: New cyclobenzaprine 10 mg tablet 10 mg PO TID PRNQty: 20 0RF Continued ibuprofen 600 mg tablet 600 mg PO TID PRNQty: 90 3RF acetaminophen 500 mg capsule 1,000 mg PO Q8H PRN (Reason: pain) Qty: 90 0RF Discharge Instructions Instructions: Lower Back Exercises (ED) Additional Instructions: no bending, lifting or twisting at the waist until symptoms improved you can use heat or ice as directed. Referrals: Clayton Corado, RESIDENTIAL LIVING ASSISTANT [Primary Care Provider] - Discharge Data Discharge Date/Time-TO BE ENTERED AT DEPARTURE: 01/29/23 18:56 Medical Decision Making Isolated injury to right side of low back following a lifting twisting motion that caused immediate pain and spasm to the area. He did not take any medication prior to arrival. No imaging is indicated. He has no radiation distally. There is no evidence of trauma bruising rash or lesion. Pain is reproducible. Lidocaine patch is applied. He is given acetaminophen 1000 mg orally ibuprofen 600 mg orally and Flexeril 10 mg with improvement in his symptoms. Physical exam after medication shows intact distal reflexes. Gait is steady and improved since admission. He has no radicular pain. He is stable for discharge to home we will give him a short supply of Flexeril to use with [id number] pain medication as directed. He is advised not to lift twist or bend at the waist until symptoms have improved Medical Records Medical records reviewed: Yes I reviewed the patient's medical records. HPI General Mode of arrival: ambulatory . Date/Time Provider Initiated Documentation: 01/29/23 16:40 . Limitations to Documentation: no limitations . Information obtained by: patient . HPI Narrative: This is a 42-year-old male patient no significant past medical history with complaints of right-sided lower back pain after a lifting and twisting injury this afternoon. He denies any radiation distally or proximally he did not take any pain medication prior to arrival. There was no other injury. He has had no rash no fever no lesions no flank pain or urinary symptoms the pain came on suddenly during the movement Related Data Home Medications Medication Instructions Recorded Confirmed acetaminophen 500 mg capsule 1,000 mg (2 x 500 mg) PO Q8H PRN 05/09/18 07/07/22 pain #90 caps ibuprofen 600 mg tablet 600 mg PO TID PRN #90 tabs 05/09/18 07/07/22 cyclobenzaprine 10 mg tablet 10 mg PO TID PRN #20 tabs 01/29/23 Previous Rx's Medication Instructions Recorded acetaminophen 500 mg capsule 1,000 mg (2 x 500 mg) PO Q8H PRN 05/09/18 pain #90 caps ibuprofen 600 mg tablet 600 mg PO TID PRN #90 tabs 05/09/18 cyclobenzaprine 10 mg tablet 10 mg PO TID PRN #20 tabs 01/29/23 Allergies Allergy/AdvReac Type Severity Reaction Status Date / Time Sulfa (Sulfonamide Allergy Unknown as child Verified 07/07/22 08:04 Antibiotics) General Stated Complaint: Nk/Back Pain SISSY: 3 Review of Systems All systems reviewed & are unremarkable except as noted in HPI and below PFSH All Active Problems (Updated 01/29/23 @ 18:30 by Christina Squires NP) Back strain (Acute) Screening for hyperlipidemia (Acute) Wart of hand (Acute) 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 Soft tissue mass (Acute) Mass of soft tissue of pelvis (Acute) Scrotal disorder (Acute) 06/2019 ache in scrotum and right groin intermittent 06/11/19 - Small right cyst head of right epididymis per [place] Lipoma of neck (Acute) 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 Maternal Grandfather Throat cancer Paternal Grandfather No problems noted. Maternal Grandmother Diabetes Heart disease COPD (chronic obstructive pulmonary disease) Paternal Grandmother Stroke Cancer Son No problems noted. Daughter No problems noted. Daughter No problems noted. Son No problems noted. Social History Smoking/Tobacco Use Status: Never Second Hand Exposure: Yes Smoking risk assessment performed?: Yes Alcohol Intake: never Drug use: Daily Substance use type: marijuana Counseling given: No Counseling provided: none Caregiver/Support person: No Household members: spouse and children Housing: house Communication Needs: None Do you need help understanding health information?: Rarely Pets and animals: Yes Pets and animals: dog(s) Sexually active: Yes Do you think of yourself as: straight/heterosexual Current gender identity: male What is your relationship status?: How often do you talk on the phone with friends or family?: three or more times per week How often do you get together with friends or relatives?: twice per week How often do you attend jainism or jainism services?: 1-3 times per year Do you belong to any clubs or organized social groups?: no Panel score (0-1 are the most socially isolated patients): 2 What type of physical activity do you participate in: other Details: cardio and small weights Duration: 30-45 minutes/day Frequency: 3-4 times per week Savita/Zoroastrian: Yazdanism Special savita needs: No Seatbelt use: sometimes Helmet use: Yes Helmet use: always Drive intox or ride w/intox putaway driver: No Do you feel safe at home: Yes Do you feel safe in your relationship?: Yes Exam Const General: cooperative and acute distress Nutritional Appearance: average body habitus Orientation: alert, awake and oriented x3 HENMT Head: normal to inspection, normocephalic and atraumatic Face and sinus: normal facial exam Neck Neck: normal visual inspection and full ROM Chest Chest: normal inspection of the chest Resp Effort & Inspection: normal respiratory effort Cardio Rate: regular rate Rhythm: regular rhythm GI Inspection: normal to inspection Palpation: soft Back/Spine/Pelvis Back: no CVA tenderness, No mass, No erythema, No ecchymosis and back tenderness (right lateral) Cervical Spine: normal cervical lordosis Thoracic/Lumbar Spine: thoracic and lumbar spine normal to inspection Skin General skin exam: no rashes or lesions noted Neuro General: patient alert, patient awake, patient oriented x3 and moves all extremities Course Vital Signs Vital signs: Vital Signs Temperature 37.0 C 01/29/23 16:42 Pulse 90 01/29/23 16:42 Respiratory Rate 20 01/29/23 16:42 Blood Pressure 142/86 H 01/29/23 16:42 Pulse Oximetry 97 01/29/23 16:42 Temperature 37.0 C 01/29/23 16:42 Pulse 90 01/29/23 16:42 Respiratory Rate 20 01/29/23 16:42 Respiratory Effort Normal 01/29/23 16:46 Blood Pressure 142/86 H 01/29/23 16:42 Blood Pressure Position Sitting 01/29/23 16:42 Pulse Oximetry 97 01/29/23 16:42 Oxygen Delivery Method Room Air 01/29/23 16:42 Oxygen Flow Rate 0 01/29/23 16:42 Pain Level 9 01/29/23 16:42
[2023-01-29] MEDS: Cyclobenzaprine 10 MG TAB, 3 TABS/BTL PO (18:56)
== END 2023-01-29 18:56 | disposition home or self-care (01) ==
PROVIDERS: Emergency Provider Nurse Practitioner Acute Care; PCP Nurse Practitioner Family
DX: M54.50 Low back pain, unspecified (principal); S39.012A Strain of muscle, fascia and tendon of lower back, initial encounter
CPT/HCPCS: 99282; 99283

== ENCOUNTER 2023-07-11 10:19 | Outpatient (REF) | payer SELFPAY ==
[2023-07-11 16:07] LABS: ALT 29 U/L (16-63); AST 13 U/L (15-37); Albumin 3.9 g/dL (3.4-5.0); Alkaline Phosphatase 57 U/L (46-116); Anion Gap 9.4 mmol/L (3-11); BUN 15 mg/dL (7-18); Bilirubin, Total 0.5 mg/dL (0.2-1.0); CO2 25.6 mmol/L (21.0-32.0); Calcium 8.9 mg/dL (8.5-10.1); Calculated LDL 67 mg/dL (<100); Chloride 107 mmol/L (98-107); Cholesterol 128 mg/dL (<200); Estimated GFR 96.97 (mL/min/1.73m2); Glucose 93 mg/dL (74-106); HDL Cholesterol 45 mg/dL (40-60); Potassium 4.4 mmol/L (3.5-5.1); Sodium 142 mmol/L (136-145); Total Protein 6.9 g/dL (6.4-8.2); Triglyceride 81 mg/dL (<150)
== END 2023-07-11 10:20 | disposition home or self-care (01) ==
LOC: LBN 10:19
PROVIDERS: PCP Nurse Practitioner Family; Visit Provider Nurse Practitioner Family
DX: Z13.220 Encounter for screening for lipoid disorders (principal); Z13.228 Encounter for screening for other metabolic disorders
CPT/HCPCS: 80053; 80061

== ENCOUNTER 2023-12-14 11:32 | Emergency (ER) | payer SELFPAY ==
[2023-12-14 11:35] VITALS: BP 124/74; PULSE 83; RESP 16; TEMP 37; O2SAT 98
[2023-12-14 13:29] VITALS: BP 124/74; PULSE 57; RESP 18; O2SAT 98
--- NOTE | 2023-12-15 16:58 | W.ED.GENAD ---
Discharge Plan Disposition Patient Disposition: Home Condition: Stable Discharge Details Clinical Impression: Hand laceration Primary Care Provider: Clayton Corado ED Provider: Christine Garza Home Meds and New Rx's Prescriptions: Continued One-A-Day Men's 50 Plus 400-370 mcg tablet 1 tab PO DAILY AM ibuprofen 600 mg tablet 600 mg PO TID PRNQty: 90 3RF acetaminophen 500 mg capsule 1,000 mg PO Q8H PRN (Reason: pain) Qty: 90 0RF Discharge Instructions Instructions: Laceration Repair With Stitches ED Additional Instructions: keep wound clean and dry allow to air dry at night aft 48-72 hours refrain from moving as much as possible do not submerge in water return with spreading redness, fever, worsening pain Referrals: Clayton Corado, SENIOR APPLICATION SOFTWARE ENGINEER [Primary Care Provider] - Discharge Data Discharge Date/Time-TO BE ENTERED AT DEPARTURE: 12/14/23 13:31 HPI General Date/Time Provider Initiated Documentation: 12/14/23 12:04. HPI Narrative: This 43-year-old male presents with report of laceration to right hand just prior to arrival. Tetanus up-to-date in 2022. Denies any additional people acute injuries. Denies strength or sensation change. Related Data Home Medications ?Medication ?Instructions ?Recorded ?Confirmed acetaminophen 500 mg capsule 1,000 mg (2 x 500 mg) PO Q8H PRN 05/09/18 12/14/23 pain #90 caps ibuprofen 600 mg tablet 600 mg PO TID PRN #90 tabs 05/09/18 12/14/23 multivitamin with minerals-folic 1 tab PO DAILY AM 08/08/23 12/14/23 acid 400 mcg-lycopene 370 mcg tablet (One-A-Day Men's 50 Plus) Previous Rx's ?Medication ?Instructions ?Recorded acetaminophen 500 mg capsule 1,000 mg (2 x 500 mg) PO Q8H PRN 05/09/18 pain #90 caps ibuprofen 600 mg tablet 600 mg PO TID PRN #90 tabs 05/09/18 Allergies Allergy/AdvReac Type Severity Reaction Status Date / Time Sulfa (Sulfonamide Allergy Unknown as child Verified 12/14/23 11:39 Antibiotics) General Stated Complaint: Laceration SISSY: 4 Exam Narrative Exam Narrative: 1 inch laceration in the webspace between first and second digits on right hand neurovascularly intact no visible foreign body, range of motion intact Course Vital Signs Vital signs: Vital Signs Temperature 37.0 C 12/14/23 11:35 Pulse 83 12/14/23 11:35 Respiratory Rate 16 12/14/23 11:35 Blood Pressure 124/74 12/14/23 11:35 Pulse Oximetry 98 12/14/23 11:35 Temperature 37.0 C 12/14/23 11:35 Pulse 57 L 12/14/23 13:29 Respiratory Rate 18 12/14/23 13:29 Respiratory Effort Normal 12/14/23 11:38 Blood Pressure 124/74 12/14/23 13:29 Pulse Oximetry 98 12/14/23 13:29 Oxygen Delivery Method Room Air 12/14/23 13:29 Oxygen Flow Rate 0 12/14/23 13:29 Pain Level 1 12/14/23 12:01 Procedures Laceration Laceration 1: Site: upper extremity Side (If applicable): right Size (cm): 2 Description: linear Depth: simple, single layer Local anesthetic: Lidocaine 1% Amount of anesthesia used (mL): 5 Pre-repair: wound explored, irrigated extensively and wound margins revised Skin layer closed with: nylon Size (cm): 5-0 Number of sutures: 2 Technique: other (vertical mattress) Medical Decision Making 23-year-old male presenting with laceration to right hand. Tolerated suture placement without incident. 2 vertical mattress sutures placed and dressing applied. Return precautions reviewed and patient expressed understanding tetanus up-to-date. 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 Maternal Grandfather Throat cancer Paternal Grandfather No problems noted. Maternal Grandmother Diabetes Heart disease COPD (chronic obstructive pulmonary disease) Paternal Grandmother Stroke Cancer Son No problems noted. Daughter No problems noted. Daughter No problems noted. Son No problems noted. Social History Smoking/Tobacco Use Status: Former Tobacco Use tobacco type: smokeless tobacco Quit Date: 04/11/08 Pack-years: 4 Smokeless tobacco user: chewing tobacco Second Hand Exposure: Yes Smoking risk assessment performed?: Yes Alcohol Intake: never Drug use: Daily Substance use type: marijuana Counseling given: No Counseling provided: none Caregiver/Support person: No Household members: spouse and children Housing: house Communication Needs: None Do you need help understanding health information?: Rarely Pets and animals: Yes Pets and animals: dog(s) Sexually active: Yes Do you think of yourself as: straight/heterosexual Current gender identity: male What is your relationship status?: How often do you talk on the phone with friends or family?: three or more times per week How often do you get together with friends or relatives?: twice per week How often do you attend religious or christian services?: 1-3 times per year Do you belong to any clubs or organized social groups?: no Panel score (0-1 are the most socially isolated patients): 2 What type of physical activity do you participate in: other Details: cardio and small weights Duration: 30-45 minutes/day Frequency: 3-4 times per week Savita/Mosque: Christianity Special savita needs: No Seatbelt use: sometimes Helmet use: Yes Helmet use: always Drive intox or ride w/intox bus driver/monitor: No Do you feel safe at home: Yes Do you feel safe in your relationship?: Yes
== END 2023-12-14 13:31 | disposition home or self-care (01) ==
PROVIDERS: Emergency Provider Physician Assistant; PCP Nurse Practitioner Family
DX: S61.411A Laceration without foreign body of right hand, initial encounter (principal); F17.220 Nicotine dependence, chewing tobacco, uncomplicated; W26.8XXA Contact with other sharp object(s), not elsewhere classified, initial encounter
CPT/HCPCS: 12001; 99283